=== PATIENT | male | born 2000 | race Caucasian/White ===

== ENCOUNTER 2021-10-29 13:39 | Outpatient (CLI) | payer OTHER, SELFPAY ==
--- NOTE | ~2021-10-29 | MR_ITS ---
EXAMINATION: MR knee LT wo con DATE: 10/29/2021 14:26 INDICATION: Left knee medial collateral ligament sprain. TECHNIQUE: Magnetic resonance imaging (MRI) of the left knee was performed without intravenous contra st. Sequences included coronal PD-weighted FSE, coronal PD-weighted FS FSE, sagittal T2-weighted FSE , sagittal PD-weighted FS FSE and axial PD weighted fat saturated FSE. COMPARISON: None. FINDINGS: Medial compartment: Medial meniscus is normal. Articular cartilage is normal. Lateral compartment: Lateral meniscus is normal. Small chondral injury along the posterior rim of the lateral tibial plate au with focal deep fissuring. There is additional partial thickness chondral fissuring along the ante rior weightbearing lateral femoral condyle and region of an acute impaction fracture at the anteriorm ost weightbearing lateral femoral condyle. Patellofemoral compartment: Articular cartilage is normal. Ligaments and tendons: Full-thickness tear of the anterior cruciate ligament. Posterior cruciate ligament is normal. The med ial collateral ligament and fibular collateral ligament complex are normal. The extensor mechanism is normal. The visualized medial and lateral hamstring tendons as well as the iliotibial band are tomasz l. Fluid: Small left knee joint effusion. There are a couple small intermediate signal intensity loose bodies i n the recess along the caudal margin of the posterior horn of the lateral meniscus near the site of t he chondral injury, the larger measuring 4 x 2 x 2 mm representing displaced chondral fragments. Osseous/other: There is an acute appearing impaction fracture at the anteriormost weightbearing lateral femoral cond yle near the lateral sulcus. There is likely associated bone contusion along the posterior rim of the lateral tibial plateau. Additional small bone contusion along the medial rim of the anterior weightb earing medial femoral condyle. Pattern would be consistent with an anterior tibial subluxation injury occurring in conjunction with the anterior cruciate ligament tear. IMPRESSION: 1. Complete tear of the anterior cruciate ligament. Small impaction fracture at the anterior weightbe aring lateral femoral condyle and bone contusions along the posterior rim of the lateral tibial plate au and medial rim of the anterior weightbearing medial femoral condyle consistent with an anterior ti bial subluxation injury. 2. Chondral injuries with deep fissuring along the anterior weightbearing lateral femoral condyle and posterior of the lateral tibial plateau and a couple very small likely displaced chondral fragments at the posterior recess of the lateral compartment. 3. Small left knee joint effusion. Reviewed, dictated and finalized at location A. IMPRESSION: 1. Complete tear of the anterior cruciate ligament. Small impaction fracture at the anterior weightbearing lateral femoral condyle and bone contusions along t he posterior rim of the lateral tibial plateau and medial rim of the anterior w eightbearing medial femoral condyle consistent with an anterior tibial subluxat ion injury. 2. Chondral injuries with deep fissuring along the anterior weightbearing later al femoral condyle and posterior of the lateral tibial plateau and a couple jared y small likely displaced chondral fragments at the posterior recess of the late ral compartment. 3. Small left knee joint effusion.
== END 2021-10-29 13:40 | disposition home or self-care (01) ==
LOC: ANHIMG 13:45
PROVIDERS: Visit Provider Physician Assistant
DX: S83.412A Sprain of medial collateral ligament of left knee, initial encounter (principal); S83.512A Sprain of anterior cruciate ligament of left knee, initial encounter; S83.242A Other tear of medial meniscus, current injury, left knee, initial encounter; X58.XXXA Exposure to other specified factors, initial encounter; M25.462 Effusion, left knee
CPT/HCPCS: 73721

== ENCOUNTER 2025-04-14 23:17 | Emergency (ER) | payer SELFPAY ==
--- OUTSIDE RECORDS SUMMARY | 2022-12-14 06:00 | XMS_ITS | Continuity of Care Document ---
Author Organization [facility] Address [address] [facility] [address] [place] [id number] Phone Care Team Providers Care Vmware Systems Administrator Name Role Phone Pedro Luis Whitlock PTAer Unavailable Unavailable Procedures Procedure Date Therapeutic Activities Neuromuscular Re-Ed Therapeutic Activities Neuromuscular Re-Ed Therapeutic Activities Neuromuscular Re-Ed Therapeutic Exercise Therapeutic Activities Neuromuscular Re-Ed Therapeutic Exercise Manual Therapy PT Re-evaluation Therapeutic Activities Neuromuscular Re-Ed Therapeutic Exercise Manual Therapy Therapeutic Activities Neuromuscular Re-Ed Therapeutic Exercise Therapeutic Activities Neuromuscular Re-Ed Therapeutic Exercise Therapeutic Activities Neuromuscular Re-Ed Therapeutic Exercise Therapeutic Activities Neuromuscular Re-Ed Therapeutic Exercise Therapeutic Activities Neuromuscular Re-Ed Therapeutic Exercise Therapeutic Activities Neuromuscular Re-Ed Therapeutic Exercise Therapeutic Activities Neuromuscular Re-Ed Therapeutic Exercise Therapeutic Activities Neuromuscular Re-Ed Therapeutic Exercise Manual Therapy Therapeutic Activities Neuromuscular Re-Ed Therapeutic Exercise Manual Therapy Therapeutic Activities Therapeutic Exercise Manual Therapy Therapeutic Activities Therapeutic Exercise Manual Therapy Hot or Cold Pack Electrical Stimulation PT Evaluation High Complexity Therapeutic Activities Therapeutic Exercise Free Assessment Therapeutic Activities Neuromuscular Re-Ed Therapeutic Exercise Therapeutic Activities Neuromuscular Re-Ed Therapeutic Exercise Therapeutic Activities Therapeutic Exercise Neuromuscular Re-Ed Therapeutic Activities Neuromuscular Re-Ed Therapeutic Exercise Manual Therapy Therapeutic Activities Manual Therapy Neuromuscular Re-Ed Therapeutic Exercise Therapeutic Activities Neuromuscular Re-Ed Manual Therapy Therapeutic Exercise Therapeutic Activities Neuromuscular Re-Ed Therapeutic Exercise Manual Therapy PT Evaluation Moderate Complexity Therapeutic Activities Neuromuscular Re-Ed Therapeutic Exercise Progress Note Therapeutic Exercise Neuromuscular Re-Ed Therapeutic Activities Manual Therapy Therapeutic Activities Neuromuscular Re-Ed Manual Therapy Therapeutic Exercise Neuromuscular Re-Ed Therapeutic Activities Therapeutic Exercise PT Evaluation Moderate Complexity Therapeutic Activities Therapeutic Exercise Neuromuscular Re-Ed Advance Directives Directive Yes / No Effective Date File Name No Information Encounters Encounter Description Practice Location Reason(s) For Visit Diagnoses Date Provider Providers Copied on Encounter [facility], [place], [place], [id number], tel:[phone] [place] No Information 3 Kamlesh Peoples. . Referring Provider: Archie Mccall, [address] [facility] [address], [place], [address]. tel:[phone] [facility] [address], [place], [place], [address], [place] tel:[phone] [place] No Information 3 Usman Vega[place]BERT, [place], [place]. Referring Provider: Archie Mccall, [address] [place] [address] [address], [place], [address]. tel:[phone] [facility] [address], [place], [place], [id number], tel:[phone] [facility] No Information 3 Usman Domínguez [place], [place]. Referring Provider: Archie Mccall, [address] [place] [address] [address], [place], [address]. tel:[phone] [facility] [address], [place], [place], [address], [place] tel:[phone] [place] No Information 0 3 Usman Domínguez [place], [place]. Referring Provider: Archie Mccall [address] [facility] [address], [place], [address]. tel:[phone] [facility] [address], [place], [place], [address], [place] tel:[phone] [place] No Information Mar-2 3 Mary Gary. , [place], [place]. Referring Provider: Archie Mccall, [address] [facility], [place], [address]. tel:[phone] [facility], [address], [place], [place], [address], [place] tel:[phone] [place] No Information Mar-2 3 Mary Gary. , [place], [place]. Referring Provider: Archie Mccall, [address] [facility], [place], [address]. tel:[phone] [facility], [address], [place], [place], [address], [place] tel:[phone] [place] No Information Mar-2 3 Usman Gaman. , [place], [place]. Referring Provider: Archie Mccall, [address], [place], [address]. tel:[phone] [facility], [address], [place], [place], [address], [place] tel:[phone] [place] No Information Oct-1 3 Mary Gary. , [place], [place]. Referring Provider: Archie Mccall, [address], [place], [address]. tel:[phone] [facility] [address], [place], [place], [address], [place] tel:[phone] [place] No Information Mar-0 3 Mary Gary. , [place], [place]. Referring Provider: Archie Mccall, [address] [facility], [place], [address]. tel:[phone] [facility], [place], [place], [address], [place] tel:[phone] [place] No Information Fe-2 3 Usman Vega. , [place]. Referring Provider: Archie Mccall, [address] [facility], [place], [address]. tel:[phone] [facility], [address], [place], [place], [address], [place] tel:[phone] [facility] No Information Feb-2 3 Usman Vega. , [place], [place]. Referring Provider: Archie Mccall, [address] [facility], [place], [address]. tel:[phone] [facility], [address], [place], [place], [address], [place] tel:[phone] [place] No Information b- 3 Usman Vega. , [place], [place]. Referring Provider: Archie Mccall, [address] [facility], [place], [address]. tel:[phone] [facility], [address], [place], [place], [address], [place] tel:[phone] [place] No Information b-1 3 Usman Vega. , [place], [place]. Referring Provider: Archie Mccall, [address] [facility], [place], [address]. tel:[phone] [facility], [address], [place], [place], [address], [place] tel:[phone] [facility] No Information Feb-0 3 Usman Vega. , [place], [place]. Referring Provider: Archie Mccall, [address], [place], [address]. tel:[phone] [facility], [place], [place], [address], [place] tel:[phone] [place] No Information Feb-0 3 Usman Vega. , [place], [place]. Referring Provider: Archie Mccall, [address], [place], [address]. tel:[phone] [facility] [address], [place], [place], [address], [place] tel:[phone] [facility] No Information 3 Usman Domínguez , [place], [place]. Referring Provider: Archie Mccall, [address] [facility], [place], [address]. tel:[phone] [facility], [place], [place], [address], [place] tel:[phone] [facility] No Information 3 Usman Domínguez , [place], [place]. Referring Provider: Archie Mccall, [address] [facility], [place], [address]. tel:[phone] [facility], [place], [place], [address], [place] tel:[phone] [place] No Information 2 Usman Domínguez , [place], [place]. Referring Provider: Physician John. [facility], [place], [place], [address], [place] tel:[phone] [place] No Information 2 Usman Domínguez , [place], [place]. [facility], [place], [place], [address], [place] tel:[phone] [place] No Information 0 2 Usman Domínguez , [place], [place]. [facility], [place], [place], [address], [place] tel:[phone] [place] No Information 0 2 Usman Domínguez , [place], [place]. [facility], [place], [place], [address], [place] tel:[phone] [place] No Information 2 Usman Domínguez , [place], [place]. [facility], [place], [place], [address], [place] tel:[phone] [place] No Information Sep-2 2 Mary Gary. , [place]. [facility], [address], [place], [place], [address], [place] tel:[phone] [place] No Information Sep-2 2 Mary Gary. , [place]. [facility], [place], [place], [address], [place] tel:[phone] [place] No Information Sep-2 2 Mary Gary. , [place]. [facility], [address], [place], [place], [address], [place] tel:[phone] [facility] No Information Sep- 2 Ag Marmolejo. . [facility], [place], [place], [address], [place] tel:[phone] [facility] No Information Nov- 2 Mary Gary. , [place], [place]. Referring Provider: Marah Raymond [address] [place] [address] [address], [place], [address]. tel:[phone] [facility], [place], [place], [address], [place] tel:[phone] [place] No Information 2 Yao Santos. . Referring Provider: Marah Raymond [address] [place] [address] [address], [place], [address]. tel:[phone] [facility], [place], [place], [address], [place] tel:[phone] [place] No Information 0 2 Mary Gary. , [place], [place]. Referring Provider: Marah Raymond [address] [place] [address] [address], [place], [address]. tel:[phone] [facility], [place], [place], [address], [place] tel:[phone] [place] No Information 2 Mary , [place], [place]. Referring Provider: Marah Raymond, [address] [place] [address] [address], [place], [address]. tel:[phone] Family History Family Member Type Diagnosis Age At Onset No Information Payers Payer name Insurance type Covered constitution party ID Vanessa giraldo(s) [facility] [id number] Social History Type Description Quantity Date Captured Comments Sex Male Smoking Status No Information Chief Complaint And Reason For Visit No Information Reason For Referral Reason For Referral No Information History Of Present Illness Encounter Date Complaint History Of Prese nt Illness No Information Functional Status Date Functional Assessmen t No Information Instructions Date Instruction Additional Infor mation No Information Assessments Type Assessment Date No Information Patient Care Teams Name Effective Dates (start - stop) Status Members No Information
[2025-04-14 23:22] VITALS: BP 139/78; PULSE 57; RESP 20; TEMP 36.7; O2SAT 98
[2025-04-15] VITALS (8 sets, daily range): BP systolic 137–144; BP diastolic 91–101; PULSE 60–99; RESP 9–22; O2SAT 97–99
--- NOTE | 2025-04-15 00:17 | ED_ITS ---
HPI - General Adult General Chief complaint: Skin/Abscess/Foreign Body Stated complaint: choking sensation, food bolus Time Seen by Provider: 04/15/25 00:09 History of Present Illness HPI narrative: This is a 24-year-old male no significant past medical history presents to the ED for food impaction. Patient states that he was eating steak earlier today when he felt it get stuck in his throat. He states that this has happened previously but he has been able to pass it or thrown up. He states that he tried carbonated water, hot water with no relief and he was unable to throw it up. He is unable tolerate solids or liquids at this time. Related Data Allergies Allergy/AdvReac Type Severity Reaction Status Date / Time No Known Allergies Allergy Verified 04/14/25 23:25 Review of Systems Review of Systems: Gen.: Denies fevers or chills Eyes: Denies eye pain or visual change ENT: Denies congestion Respiratory: Denies shortness of breath or cough CV: Denies chest pain or palpitations GI: Denies abdominal pain nausea, emesis or diarrhea denies burning, urgency, frequency or hematuria Musculoskeletal: Denies back pain or muscle pain Neuro: Denies numbness, tingling, weakness or focal weakness Skin: Denies rash Except as documented, all other systems reviewed and negative Exam Narrative: APPEARANCE: No acute distress, nontoxic, resting in bed EYES: EOMI HEENT: Normocephalic, atraumatic, OMM RESPIRATORY: No respiratory distress Clear to auscultation bilaterally with no rhonchi wheezing or rales. CARDIOVASCULAR: Regular rate and rhythm without murmurs rubs or gallops. ABDOMINAL: Soft, nontender, nondistended, no rebound or guarding MUSCULOSKELETAl: Moves all extremities. No clubbing, cyanosis or edema. NEURO: Awake and alert. Following commands, speech normal, no focal deficits SKIN:: Warm, dry. No rashes lesions or abrasions PSYCHIATRIC: Normal affect/mood, Course Vital Signs Vital signs: Vital Signs Temperature 98.0 F 04/14/25 23:22 Pulse Rate 57 L 04/14/25 23:22 Respiratory Rate 20 04/14/25 23:22 Blood Pressure 139/78 04/14/25 23:22 Pulse Oximetry 98 04/14/25 23:22 Oxygen Delivery Room Air 04/14/25 23:22 Temperature 98.0 F 04/14/25 23:22 Pulse Rate 67 04/15/25 01:00 Respiratory Rate 17 04/15/25 01:00 Blood Pressure 143/91 H 04/15/25 00:37 Pulse Oximetry 97 04/15/25 01:00 Oxygen Delivery Room Air 04/14/25 23:22 Medical Decision Making MDM Narrative Medical decision making narrative: 24-year-old male who presented to the ED for possible food impaction. On initial evaluation, patient was in no acute distress, afebrile, hemodynamically stable. He was tolerating his secretions but was unable to tolerate solids or liquids. He had already tried carbonated beverage home. Patient was given glucagon and shortly after this, he was able to vomit the steak. Patient was able to pass a trial he was seen discharge this time. He was advised to follow up his PCP week for re-evaluation. Patient was agreeable to this plan. Given strict return precautions. Differential Diagnosis Differential Diagnosis: Food impaction, Schatzki's ring Medical Records Medical records reviewed: Yes I reviewed the external patient's medical records. Vital Signs Vital Signs: Vital Signs Temperature 98.0 F 04/14/25 23:22 Pulse Rate 57 L 04/14/25 23:22 Respiratory Rate 20 04/14/25 23:22 Blood Pressure 139/78 04/14/25 23:22 Pulse Oximetry 98 04/14/25 23:22 Oxygen Delivery Room Air 04/14/25 23:22 Temperature 98.0 F 04/14/25 23:22 Pulse Rate 67 04/15/25 01:00 Respiratory Rate 17 04/15/25 01:00 Blood Pressure 143/91 H 04/15/25 00:37 Pulse Oximetry 97 04/15/25 01:00 Oxygen Delivery Room Air 04/14/25 23:22 Discharge Plan Discharge Clinical Impression: Esophageal obstruction due to food impaction Patient Disposition: Home Condition: Stable Instructions: Antibiotic Form, Food Impaction (ED) Additional Instructions: please ensure that you fully treat your food prior to swallowing. Follow-up with your PCP or with Dr. Cosby, family medicine, to establish care. return to the ED for new or worsening symptoms. Patient Language: Japanese Follow-up/Referrals: Kye Cosby MD [Physician, Family Practice] UNKNOWN,DOCTOR [Primary Care Provider]
--- OUTSIDE RECORDS SUMMARY | 2025-04-15 00:19 | XMS_ITS | Clinical Summary ---
Author Organization [address] Address [address] [place] [id number] Care Team Providers Care Nuclear Equipment Test Engineer Name Role Phone Marah RaymondShraddha TONIA Unavailable [phone] Archie Mccall Unavailable [phone] Unknown, Notinfile Primary Care Provider Unavail able Allergies No known active allergies Medications multivitamin-brittani cium carb tablet,chewable Take 1 tablet/chew tab by mouth daily Active cetirizine (ZyrTEC) 10 mg tablet Take 10 mg by mouth daily Active Active Problems Problem Noted Date Diagnosed Date [place] lesion of left knee 08/17/2022 Overview (08/17/2022): Added automatically from request for surgery [id number] Left anterior cruciate ligament tear 12/06/2021 Overview (12/06/2021): Added automatically from request for surgery [id number] Surgical History Surgery Date Site/Laterality Comments KNEE ARTHROSCOPY Social History Tobacco Use Types Packs/Day Years Used Date Smoking Tobacco: Never Smokeless Tobacco: Never Tobacco Cessation:Counseling Given: Not Answered AUDIT-C Answer Date Recorded Q1: How often do you have a drink containing alc ohol? 2-3 times a week 08/17/2022 Q2: How many drinks containi ng alcohol do you have on a typical day when you are drinking? 3 or 4 08/17/2022 Q3: How often do you have si x or more drinks on one occasion? 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 Gender Identity Not on file Sexual Orientation Not on file Obstetrics History Last Filed Vital Signs Vital Sign Reading Time Taken Comments Blood Pressure 124/79 11/05/2022 11:54 AM CDT Pulse 66 11/05/2022 11:54 AM CDT Temperature 36.8 C (98.3 F) 08/23/2022 1:45 PM HVAC CONTROLS TECHNICIAN Respiratory Rate 20 08/23/2022 2:10 PM HVAC CONTROLS TECHNICIAN Oxygen Saturation 99% 08/23/2022 2:10 PM HVAC CONTROLS TECHNICIAN Inhaled Oxygen Concentration - - Weight 88.6 kg (195 lb 6.4 oz) 11/05/2022 11:54 AM CDT Height 185.4 cm (6' 1) 11/05/2022 11:54 AM CDT Body Mass Index 25.78 11/05/2022 11:54 AM CDT Plan of Treatment Health Maintenance Due Date Last Done Comments Depression Screening 2001 Hepatitis C Screening 2001 HPV Vaccines (2 - Male 2-dos e series) 08/07/2013 02/05/2013 Meningococcal B Vaccine (2 o f 2 - Trumenba SCDM 2-dose series) 07/21/2019 01/19/2019 Regular Well Visit/Exam 18-64 10/22/2019 DTaP/Tdap/Td Vaccine (7 - Td or Tdap) 02/05/2023 02/05/2013, 05/20/2007, 12/04/2002, Additional history exists Covid-19 Vaccine (2 - 2023-2 5 season) 2024 03/08/2021 Influenza Vaccine (#1) 2025 8, 04/27/2011, 04/25/2009, Additional history exists Hepatitis B Screening Completed 12/04/2002 , 03/05/2002, 01/01/2002 Pneumococcal vaccine <65 Completed 003, 05/22/2002, 03/05/2002, Additional history exists Varicella Vaccines Completed 05/20/2007, 2002 Medical Devices Implanted Type Area Boilermaker Welder Device Identifier Shelf Expiration Date Model / Serial / Lot [employer] Tightrope 14mm Attachable Round Concave Button Fixation Ar-1588tb-[id number] - [id number] Implanted:Qty: 1 on 12/21/2021 by Tushar Daily MD at [facility] Left: Knee [employer] 09/11/2026 AR-1588TB-4 / / [id number] [employer] Swivelock C 4.75mm 19.1mm Closed Eyelet Vent [place] Suture Ar-2324bcc - [id number] Implanted:Qty: 1 on 12/21/2021 by Tushar Daily MD at [facility] Left: Knee [employer] 06/11/2025 AR-[id number] / / [id number] [employer] Ar-1588-Tyrone Device Fxatn Tightrope Fibertag Acl Abs Disp - [id number] Implanted:Qty: 1 on 12/21/2021 by Tushar Daily MD at [facility] Left: Knee [employer] 05/11/2026 AR-1588TNT / / [id number] [employer] Device Fxatn Tightrope Fibertag Acl Right Disp Ar-1588-Rtt - [id number] Implanted:Qty: 1 on 12/21/2021 by Tushar Daily MD at [facility] Left: Knee [employer] 08/11/2026 AR-1588-RTT / / [id number] Insurance [facility] Care Teams Nuclear Equipment Test Engineer Relationship Specialty Start Date End Date Unknown, Notinfile PCP - General 08/24/22 Marah Raymond PA Physician Printed Circuit Board Layout Designer Orthopedic Surgery 12/21/21 Archie Mccall PA [address] [address] [place] [id number] Physician Printed Circuit Board Layout Designer Orthopedic Surgery 08/23/22
[2025-04-15] MEDS: GLUCAGON FOR INJ 1 MG VIAL IV PUSH (00:26)
== END 2025-04-15 01:22 | disposition home or self-care (01) ==
PROVIDERS: Emergency Provider Student in an Organized Health Care Education/Training Program
DX: T18.128A Food in esophagus causing other injury, initial encounter (principal); K22.2 Esophageal obstruction; W44.F3XA Food entering into or through a natural orifice, initial encounter
CPT/HCPCS: 96374; 99284; J1610